=== PATIENT | male | born 1955 | race Caucasian/White ===

== ENCOUNTER → 2019-03-10 | Outpatient (CLI) | payer OTHER ==
--- NOTE | 2019-03-10 09:58 | KCIC ---
EXAM: Abdominal aortic sonogram. HISTORY: Aneurysm screening. TECHNIQUE: Sonographic imaging of the abdominal aorta was performed. COMPARISON: None. FINDINGS: The proximal abdominal aorta measures 2.9 cm in caliber. The mid abdominal aorta measures 2.1 cm in caliber. The distal abdominal aorta measures 1.3 cm in caliber. The common iliac arteries measure 0.5 cm of the right and 0.6 cm of the left. There is atherosclerotic plaque throughout the aorta and iliac bifurcation. IMPRESSION: No sonographic evidence of an abdominal aortic aneurysm. Aortobiiliac atherosclerosis. Electronically signed by: Sofia Donnelly MD (03/10/2019 9:55 AM) [place] [id number]
--- NOTE | 2019-03-10 14:00 | KCIC ---
MRI of the lumbar spine without contrast 03/10/2019 CLINICAL HISTORY: History of compression fractures with recent fall. Worsening low back pain. TECHNIQUE: Unenhanced T1-weighted and T2-weighted sagittal and axial and inversion recovery sagittal images of the lumbar spine were obtained. FINDINGS: Comparison is made to radiographs of the lumbar spine dated 09/11/2010. Very mild S-shaped curvature of the thoracolumbar spine is seen. Degenerative signal changes are seen involving all of the disks of the lumbar spine. Degenerative signal changes are seen within the marrow surrounding these discs. An old compression fracture of the superior endplate of the L3 vertebral body is seen. This vertebral body has lost 50 percent of its normal height. No retropulsion of bone fragments into the central spinal canal is seen. Schmorl's node formation is seen involving the superior endplate of the T12 vertebral body, the inferior endplate of the L1 vertebral body and the superior endplate of the L3 vertebral body and to lesser extent the superior endplate of the L4-5 vertebral body. An acute compression fracture is seen involving the L4 vertebral body. This vertebral body has lost approximately 40 percent of its normal height. No retropulsion of bone fragments into the central spinal canal is seen. The conus medullaris is normal in morphology, position, and signal characteristics. The changes of degenerative disc disease are seen throughout the lumbar disc spaces. These consist of mild to moderate generalized disc bulges, degenerative changes involving the facet joints and mild to moderate ligamentum flavum hypertrophy. These findings do not result in significant central spinal canal stenosis at any level. Mild bilateral neural foraminal stenosis is seen at L3-4, L4-5 and L5-S1. IMPRESSION: An acute compression fracture seen involving the L4 vertebral body. No retropulsion of bone fragments into the central spinal canal is seen. Electronically signed by: Jona Frederick MD (03/10/2019 1:57 PM) [facility]
== END | disposition home or self-care (01) ==
LOC: KCIC US 08:21
PROVIDERS: ATTEND Family Medicine
DX: Z13.6 Encounter for screening for cardiovascular disorders (principal); M80.08XA Age-related osteoporosis with current pathological fracture, vertebra(e), initial encounter for fracture; I70.0 Atherosclerosis of aorta; M51.36 Other intervertebral disc degeneration, lumbar region; M48.07 Spinal stenosis, lumbosacral region; F17.219 Nicotine dependence, cigarettes, with unspecified nicotine-induced disorders; Z87.81 Personal history of (healed) traumatic fracture
CPT/HCPCS: 72148; 76770

== ENCOUNTER 2019-09-24 12:42 | Inpatient (IN) | payer OTHER ==
[~2019-09-24] VITALS: Ht 177.8 cm; Wt 53.5 kg
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
[2019-09-24 16:12] VITALS: BP 186/84
[2019-09-24] MEDS ORDERED: KETOROLAC 15 MG/ML VIAL. IVP PRN (16:15)
[2019-09-24] MEDS ORDERED: ONDANSETRON PF 4 MG/2 ML VIAL. IVP PRN (16:15)
[2019-09-24] MEDS: POTASSIUM CL 20MEQ D5-0.45NACL 1,000 ML IV SCH (16:44)
[2019-09-24 17:09] LABS: BASO % 0 % (0-3); EOS # 0.1 x10^3/uL (0.0-0.7); EOS % 1 % (0-3); HEMATOCRIT 34.3 % (39.0-53.0); HEMOGLOBIN 11.9 g/dL (13.0-17.5); LYMPH # 1.1 x10^3/uL (1.0-4.8); LYMPH % 6 % (24-48); MEAN CORPUSCULAR HEMOGLOBIN 34 pg (25-35); MEAN CORPUSCULAR HGB CONC 35 g/dL (31-37); MEAN CORPUSCULAR VOLUME 98 fL (79-100); MONO # 0.8 x10^3/uL (0.0-1.1); MONO % 5 % (0-9); NEUT # 15.6 x10^3/uL (1.8-7.7); NEUT % 89 % (31-73); PLATELET COUNT 361 x10^3/uL (140-400); RED CELL DISTRIBUTION WIDTH 14.1 % (11.5-14.5); WHITE BLOOD COUNT 17.6 x10^3/uL (4.0-11.0)
[2019-09-24 17:21] LABS: CALCIUM 8.8 mg/dL (8.5-10.1); CREATININE 1.7 mg/dL (0.7-1.3); GFR 40.7; POTASSIUM 4.4 mmol/L (3.5-5.1)
[2019-09-24 17:26] LABS: ALBUMIN 2.4 g/dL (3.4-5.0); ALBUMIN/GLOBULIN RATIO 0.6 (1.0-1.7); TOTAL BILIRUBIN 0.3 mg/dL (0.2-1.0); TOTAL PROTEIN 6.4 g/dL (6.4-8.2)
[2019-09-24 17:45] LABS: % BANDS 1 % (0-9); % LYMPHS 4 % (24-48); % MONOS 5 % (0-10); % SEGS 90 % (35-66)
[2019-09-24 17:46] LABS: PLT ESTIMATE ADEQUATE (ADEQUATE)
[2019-09-24] MEDS ORDERED: fentaNYL PF VIAL 100 MCG/2 ML VIAL IVP PRN (18:30)
[2019-09-24 19:00] VITALS: BP 123/43
[2019-09-24 19:42] LABS: BILIRUBIN,URINE NEGATIVE (NEG); CLARITY,URINE CLEAR; COLOR,URINE YELLOW; NITRITE,URINE NEGATIVE (NEG); PH,URINE 6.5; PROTEIN,URINE NEGATIVE (NEG-TRACE); UROBILINOGEN,URINE 0.2 mg/dL (0.2 mg/dL)
[2019-09-24 19:52] LABS: BACTERIA,URINE 0 /HPF (0-FEW); SQUAMOUS EPITHELIAL CELL,UR FEW /LPF
[2019-09-24] MEDS: LACTOBACILLUS RHAMNOSUS GG 1 CAPSULE. PO SCH (20:52)
[2019-09-24] MEDS: CIPROFLOXACIN 400MG PREMIX 200 ML IV SCH (20:52)
[2019-09-24 22:17] VITALS: BP 130/68
[2019-09-25] MEDS: POTASSIUM CL 20MEQ D5-0.45NACL 1,000 ML IV SCH ×3 (01:28→18:15)
[2019-09-25 03:00] VITALS: BP 151/70
--- NOTE | 2019-09-25 03:07 | RAD ---
CHEST PA LATERAL CLINICAL INDICATION: Lower extremity weakness. History of COPD. COMPARISON: None FINDINGS: Heart is normal in size. Interstitial opacities bilaterally without focal ulceration. Lungs are hyperinflated. No pneumothorax or pleural effusion. Visualized bony thorax within normal limits. IMPRESSION: COPD changes with superimposed atypical/viral infection not ruled out. Electronically signed by: Pilo Marc DO (09/25/2019 3:05 AM) [facility]
[2019-09-25 07:00] VITALS: BP 182/71
--- NOTE | 2019-09-25 08:32 | PDOC ---
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 LALY SANCHEZ MD Sep 25, 2019 08:31
[2019-09-25] MEDS: CIPROFLOXACIN 400MG PREMIX 200 ML IV SCH ×2 (09:01→21:02)
[2019-09-25] MEDS: NICOTINE 14MG PATCH. TD SCH (09:02)
[2019-09-25] MEDS: LACTOBACILLUS RHAMNOSUS GG 1 CAPSULE. PO SCH ×2 (09:02→21:02)
[2019-09-25] MEDS: CHOLECALCIFEROL (VITAMIN D3) 1,000 UNIT TABLET PO SCH (09:02)
[2019-09-25 11:00] VITALS: BP 156/119
[2019-09-25] MEDS: HYDROcodone/APAP 5/325MG 1 TAB TABLET PO PRN ×2 (11:00→18:15)
--- NOTE | 2019-09-25 12:35 | NUR ---
SW following for discharge planning. Discussed with RN, pt is from home alone, MRI today. PT/OT to see pt. SW will continue to follow for any discharge planning needs.
--- NOTE | 2019-09-25 14:44 | NUR ---
Rehab screen completed. Pt reports decline in mobility and ADL's due to increased pain in bilateral LE's and feet and would benefit from PT/OT eval and treat. Please order if you agree. Addendum: 09/25/19 at 1446 by STEFFANY BROWN PT Amended: Links added.
[2019-09-25 15:00] VITALS: BP 141/63
[2019-09-25 19:00] VITALS: BP 152/69
[2019-09-25 23:00] VITALS: BP 134/78
[2019-09-26 03:00] VITALS: BP 144/56
[2019-09-26] MEDS: HYDROcodone/APAP 5/325MG 1 TAB TABLET PO PRN ×2 (04:16→11:52)
[2019-09-26 04:50] LABS: CALCIUM 8.6 mg/dL (8.5-10.1); CREATININE 1.4 mg/dL (0.7-1.3); GFR 50.9; POTASSIUM 4.5 mmol/L (3.5-5.1)
[2019-09-26 07:59] VITALS: BP 142/57
[2019-09-26] MEDS: POTASSIUM CL 20MEQ D5-0.45NACL 1,000 ML IV SCH (08:25)
[2019-09-26] MEDS: CIPROFLOXACIN 400MG PREMIX 200 ML IV SCH (08:26)
[2019-09-26] MEDS: LACTOBACILLUS RHAMNOSUS GG 1 CAPSULE. PO SCH ×2 (08:26→21:41)
[2019-09-26] MEDS: CHOLECALCIFEROL (VITAMIN D3) 1,000 UNIT TABLET PO SCH (08:26)
[2019-09-26] MEDS: NICOTINE 14MG PATCH. TD SCH (08:26)
--- NOTE | 2019-09-26 10:34 | PDOC ---
Provider Note Provider Note vss, no more temp, feels better, no more temp- still has pain down both legs , worse when standing, as well as low back pain- psa now 2 from 16, - MRI wa sordered on admit 09/24, as my concern is diff dx of disciitis, tumor, epidural abscess among others- THE DELAY IN THIS PROCEDURE PLACES THE PATIENT AT GREATER RISK OF POOR OUTCOME BY DELAYING THE CLEARLY INDICATED TEST- I informed the patient of this delay, and that he cannot have this done as outpatient as that would lead to even greater time delay in knowing what next may need to be done- he understands my concerns and the need for continued hosp care- renal better so will reduce iv fluid and follow, cont cipro as po now- blood cults neg so far LALY SANCHEZ MD Sep 26, 2019 10:34
[2019-09-26 11:59] VITALS: BP 156/55
[2019-09-26 15:59] VITALS: BP 142/72
[2019-09-26 19:00] VITALS: BP 150/65
[2019-09-26] MEDS: IPRATRPIUM/ALBUTEROL 0.5/2.5MG 3 ML NEBU. NEB SCH (20:18)
[2019-09-26] MEDS: CIPROFLOXACIN HCL 250 MG TABLET. PO SCH (21:41)
[2019-09-26 23:00] VITALS: BP 99/41
[2019-09-27 03:00] VITALS: BP 101/42
[2019-09-27] MEDS: IPRATRPIUM/ALBUTEROL 0.5/2.5MG 3 ML NEBU. NEB SCH ×4 (07:33→19:56)
[2019-09-27 07:59] VITALS: BP 110/53
[2019-09-27] MEDS: LACTOBACILLUS RHAMNOSUS GG 1 CAPSULE. PO SCH ×2 (08:32→20:55)
[2019-09-27] MEDS: CHOLECALCIFEROL (VITAMIN D3) 1,000 UNIT TABLET PO SCH (08:32)
[2019-09-27] MEDS: CIPROFLOXACIN HCL 250 MG TABLET. PO SCH ×2 (08:32→20:56)
[2019-09-27] MEDS: NICOTINE 14MG PATCH. TD SCH (08:33)
[2019-09-27] MEDS ORDERED: VANCOMYCIN 1GM IVPB FOR OMNI 250 ML IV ONE (09:15)
[2019-09-27] MEDS ORDERED: VANCOMYCIN 1 GM in IV NORMAL SALINE 250ML 250 ML IV ONE (10:00)
--- NOTE | 2019-09-27 11:33 | RAD ---
EXAM: Thoracolumbar spine, 2 views. HISTORY: Claudication. COMPARISON: None. FINDINGS: 2 views of the thoracolumbar spine are obtained. There are suspected mild T7, moderate T9 and mild T10 compression fractures there are also mild L3 and L5 and moderate L4 compression fractures, the latter of which is associated with slight retropulsion of the cortex. There is mild thoracolumbar scoliosis. There is facet arthropathy at the lower lumbar levels. There is hyperinflation of the lungs due to inspiratory effort or emphysema. There are suspected trace pleural effusions or basilar pleural thickening. IMPRESSION: 1. Multiple thoracic and lumbar compression fractures, described above. These are of uncertain chronicity. Correlate for pain in these locations. 2. Degenerative change primarily at the lower lumbar levels. Electronically signed by: Sofia Donnelly MD (09/27/2019 11:30 AM) [facility]
[2019-09-27 11:59] VITALS: BP 123/46
--- NOTE | 2019-09-27 13:02 | PDOC ---
Infectious Disease Note Vital Sign Vital Signs Vital Signs Date Time Temp Pulse Resp B/P (MAP) Pulse Ox O2 Delivery O2 Flow Rate FiO2 09/27/19 11:59 98.1 103 20 123/46 (71) 94 Nasal Cannula 2.0 98.1 Labs Micro Microbiology 09/24/19 Urine Culture - Final, Complete 09/24/19 Urine Culture Result 1 (KUNAL) - Final, Complete 09/24/19 Blood Culture - Preliminary, Resulted NO GROWTH AFTER 2 DAYS Objective Assessment Fever s/p dose vanc, 09/27 Leukocytosis, (down from 28,000 outpatient) UTI. Failed OP Bactrim. over-all symptoms improved with cipro but still having urinary urgency Back pain with bilateral lower extremity pain and weakness h/o lumbar compression fractures RADHA Tobacco dependency Plan Plan of Care check a procalcitoin level Pelvic and renal US Copy of labs/urine culture from PCP office requested Needs MRI r/o diskitis Consult neurology Continue cipro for now Vanc x 1 dose, 09/27 per primary Above rec per Dr. Bonilla Thank you [id number] Patient seen and examined. Chart reviewed in detail. 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 Agree with above plan LIEN LOPEZ APRN Sep 27, 2019 13:02 ARLINE BONILLA MD Sep 27, 2019 19:06
--- NOTE | 2019-09-27 13:26 | PDOC ---
Provider Note Provider Note more low grade temp, leg sxs same- BC neg so far- note mult fractures of spine, ? age , raises ? of myeloma, so will get light chains/ SPE/ skeletal survey- still await approval of SERIOUSLY NEEDED MRI s. pt is aware of reason for delay- will add vanco pending further BC but e coli in urine responding to LALY Martinez MD Sep 27, 2019 13:26
[2019-09-27 13:39] LABS: BASO # 0.1 x10^3/uL (0.0-0.2); BASO % 1 % (0-3); EOS # 0.1 x10^3/uL (0.0-0.7); EOS % 1 % (0-3); HEMATOCRIT 31.7 % (39.0-53.0); HEMOGLOBIN 10.6 g/dL (13.0-17.5); LYMPH # 1.1 x10^3/uL (1.0-4.8); LYMPH % 7 % (24-48); MEAN CORPUSCULAR HEMOGLOBIN 33 pg (25-35); MEAN CORPUSCULAR HGB CONC 33 g/dL (31-37); MEAN CORPUSCULAR VOLUME 99 fL (79-100); MONO % 6 % (0-9); NEUT # 13.1 x10^3/uL (1.8-7.7); NEUT % 85 % (31-73); PLATELET COUNT 411 x10^3/uL (140-400); RED BLOOD COUNT 3.22 x10^6/uL (4.30-5.70); RED CELL DISTRIBUTION WIDTH 13.6 % (11.5-14.5); WHITE BLOOD COUNT 15.3 x10^3/uL (4.0-11.0)
[2019-09-27] MEDS: VANCOMYCIN PER PHARMACY MC PRN ×2 (13:48→14:09)
[2019-09-27 15:00] VITALS: BP 117/60
--- NOTE | 2019-09-27 15:20 | NUR ---
Pharmacy Vancomycin Dosing Note S:Consulted to monitor and dose vancomycin started 09/27/19. O:ANIVAL CROWE is a 64 year old M with UTI . Height: 5 feet, 10 inches Weight: 53.162747 kg [place] Body Weight: Adjusted Body Weight: Dosing Weight: Actual Other Antibiotics: CIPRO PO LABS: Last BUN: Last Creatinine: 1.4 Creatinine Clearance: 40 mL/min Last WBC: 15.3 Last Procalcitonin: Tmax (past 24 hours): 100.4 Microbiology: URINE NG1D I/O: 1060/4000 Drug Levels: Last level: on at Last dose given 09/27/19 at 1100 Vancomycin Dosing: Loading Dose: 1000 mg x1 Dosing Weight: Actual Target Trough: 10-20 A: Based on: WEIGHT AND RENAL FUNCTION, 1GM IV BOLUS THIS MORNING; P: 1. START Vancomycin 1000 mg IV q24HR TOMORROW 2. Follow up Trough level on 09/29/19 at 1030 3. Pharmacy will continue to monitor, follow and adjust therapy as needed. ANTHONY MENDOZA [facility], 09/27/19 [id number]
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
[2019-09-27 19:00] VITALS: BP 127/57
[2019-09-27] MEDS ORDERED: VANCOMYCIN 1 GM in IV NORMAL SALINE 250ML 250 ML IV SCH (20:30)
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
[2019-09-27 23:00] VITALS: BP 125/59
[2019-09-28 03:02] VITALS: BP 104/54
[2019-09-28 07:00] VITALS: BP 131/62
[2019-09-28] MEDS: IPRATRPIUM/ALBUTEROL 0.5/2.5MG 3 ML NEBU. NEB SCH ×4 (07:25→19:43)
[2019-09-28] MEDS: NICOTINE 14MG PATCH. TD SCH (08:18)
[2019-09-28] MEDS: HYDROcodone/APAP 5/325MG 1 TAB TABLET PO PRN (08:18)
[2019-09-28] MEDS: CHOLECALCIFEROL (VITAMIN D3) 1,000 UNIT TABLET PO SCH (08:19)
[2019-09-28] MEDS: LACTOBACILLUS RHAMNOSUS GG 1 CAPSULE. PO SCH ×2 (08:19→20:37)
[2019-09-28] MEDS: CIPROFLOXACIN HCL 250 MG TABLET. PO SCH (08:19)
--- NOTE | 2019-09-28 08:19 | RAD ---
RENAL COMPLETE BILATERAL History: Acute kidney injury, urinary urgency, UTI, fever Comparison: None. Findings: Multiple sonographic images of the kidneys and retroperitoneal structures are submitted. Right kidney measured 12.1 x 5.5 x 5.9 cm, no hydronephrosis. There is a partially hypoechoic lesion with somewhat coarse internal echoes of the mid to inferior right kidney about 2.4 x 1.7 x 1.9 cm. This is not associated with significant internal vascularity on color Doppler imaging. Left kidney measured 11.4 x 5.9 x 5.1 cm, no hydronephrosis. Visualized abdominal aortic caliber is within normal limits up to 2 cm, mid segment obscured by bowel gas. There is segmental visualization of the inferior vena cava. Urinary bladder is not well visualized as patient recently voided. Impression: 1. Not associated with significant internal vascularity, there is a partially hypoechoic lesion of the mid to inferior right kidney which may be a complicated cyst or acute focal pyelonephritis. However given internal echoes, follow-up to assess stability such as in 6 months or pre and postcontrast CT imaging is recommended. Electronically signed by: Yuri Nuno MD (09/28/2019 8:15 AM) [facility]
--- NOTE | 2019-09-28 08:43 | PDOC ---
Provider Note Provider Note feels same, pain ok at rest, worse standing- bc all neg, myeloma tests pending- mri is to be done today as approved- LALY SANHCEZ MD Sep 28, 2019 08:43
[2019-09-28] MEDS ORDERED: GADOTERATE 7.5 MMOL/15ML VIAL. IVP ONE (10:45)
[2019-09-28 11:00] VITALS: BP 134/60
[2019-09-28] MEDS ORDERED: VANCOMYCIN 1 GM in IV NORMAL SALINE 250ML 250 ML IV SCH (11:00)
--- NOTE | 2019-09-28 11:58 | NUR ---
SW following for discharge planning. Chart reviewed, discussed with RN. Pt is from home alone, having an MRI today. PT/OT eval recommended by therapy. SW will continue to follow for any discharge planning needs.
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
--- NOTE | 2019-09-28 12:24 | PDOC ---
Infectious Disease Note Subjective Subjective Doing ok. Back pain is ok Just had MRI No F/C/S/N/V/d/SOA/rash or urinary symptoms ROS ROS o/w neg Vital Sign Vital Signs Vital Signs Date Time Temp Pulse Resp B/P (MAP) Pulse Ox O2 Delivery O2 Flow Rate FiO2 09/28/19 11:27 90 Nasal Cannula 2.0 09/28/19 07:00 97.9 103 17 131/62 (85) 97.9 Physical Exam PHYSICAL EXAM GENERAL: The patient is sitting upright in bed, alert, eating. NAD HEENT: Pupils equally round. Oropharynx red. No exudates. NECK: Supple. LUNGS: Clear to auscultation. HEART: S1, S2. ABDOMEN: Soft and nontender. Bowel sounds present. EXTREMITIES: No gross edema or cyanosis. SKIN: Warm to touch. No signs of rash. NEUROLOGIC: Alert and oriented x 3. Moves all extremities.coop Labs Lab Laboratory Tests Test 09/28/19 02:50 Procalcitonin 0.24 ng/mL (0.00-0.10) Micro Microbiology 09/27/19 Blood Culture - Preliminary, Resulted NO GROWTH AFTER 1 DAY 09/24/19 Urine Culture - Final, Complete 09/24/19 Urine Culture Result 1 (KUNAL) - Final, Complete Objective Assessment 1. Fever - better 2. Leukocytosis, improved from 28,000 outpatient. 3. Recent urinary tract infection, reportedly with Escherichia coli resistant to Bactrim. -U/S - no acute ?cyst 4. Back pain with bilateral lower extremity pain and weakness. 5. History of lumbar compression fractures. 6. Acute kidney injury. 7. Tobacco dependency. Plan Plan of Care Labs in am Copy of labs/urine culture from PCP office requested F/u MRI Continue cipro/Vanc SYLWIA MEHTA MD Sep 28, 2019 12:24
[2019-09-28 15:05] VITALS: BP 110/57
[2019-09-28] MEDS: VANCOMYCIN PER PHARMACY MC PRN (15:07)
--- NOTE | 2019-09-28 15:43 | NUR ---
I have read the documentation by SN Agustin and concur unless otherwise stated. Joaquín Castillo, MSN, ALLA, RN [facility]
--- NOTE | 2019-09-28 16:48 | RAD ---
THORACIC SPINE WO CONTRAST, LUMBAR SPINE WO/W CONTRAST History: Compression fractures. Pain. Fever. Sepsis. Technique: Multiplanar, multi sequential MR imaging was performed of the thoracic spine without contrast. Multiplanar multisequence MRI was performed of the lumbar spine with and without contrast. Comparison: MRI March 10, 2019. Findings: Thoracic spine MRI: Motion degraded examination. Chronic mild T6, T8, T10 and T11 compression fractures. Chronic moderate T7 and T9 compression fractures. T12 superior endplate Schmorl's node. Normal alignment. No retropulsion. Evaluation of the thoracic spinal cord is degraded due to patient motion. No definite signal abnormality. Mild multilevel degenerative disc disease with disc space narrowing. T11-T12 small posterior disc protrusion. No significant canal narrowing. No neuroforaminal narrowing. Tiny bilateral pleural effusions. MRI lumbar spine: Motion degraded examination. Acute on chronic L4 compression fracture with increased bone marrow edema and increased height loss compared to prior. No retropulsion. Chronic L3 and L5 compression fractures. Inferior endplate L1 Schmorl's node. Normal alignment. No retropulsion. Conus terminates at the normal location. No evidence of nerve root clumping. No enhancement. Right renal cysts. L1-L2: Small posterior disc bulge. No canal or neuroforaminal narrowing. Mild facet arthropathy. L2-L3: Small posterior disc bulge. Mild facet arthropathy. No canal or neuroforaminal narrowing. L3-L4: Broad-based posterior disc bulge. Moderate facet arthropathy. Mild canal narrowing. Superimposed right foraminal disc protrusion. Moderate right neuroforaminal narrowing. Mild left neuroforaminal narrowing. L4-L5: Small posterior disc bulge. Moderate facet arthropathy. Bilateral facet joint effusion. Mild bilateral subarticular recess narrowing. No canal narrowing. Moderate right and mild to moderate left neuroforaminal narrowing. L5-S1: Broad-based posterior disc bulge with central annular fissure. Moderate facet arthropathy. No canal narrowing. Moderate bilateral neural foraminal narrowing. Impression: 1. Motion degraded evaluation. 2. Acute on chronic L4 compression fracture, increased height loss compared to prior. 3. Additional multilevel chronic thoracolumbar compression fractures. 4. Multilevel lumbar spondylosis most prominent L3-L4 and L5-S1. 5. Multilevel neural foraminal narrowing most prominent right L3-L4, right L4-L5 and bilateral L5-S1. 6. Tiny bilateral pleural effusions. Electronically signed by: Jag Brumfield DO (09/28/2019 4:45 PM) [facility]
[2019-09-28 19:00] VITALS: BP 120/58
[2019-09-28] MEDS ORDERED: FLUCONAZOLE 100 MG TABLET. PO ONE (21:00)
[2019-09-28 23:00] VITALS: BP 116/54
[2019-09-29 02:32] VITALS: BP 128/57
[2019-09-29 03:52] LABS: BASO # 0.1 x10^3/uL (0.0-0.2); BASO % 1 % (0-3); EOS # 0.5 x10^3/uL (0.0-0.7); EOS % 3 % (0-3); HEMATOCRIT 28.4 % (39.0-53.0); HEMOGLOBIN 9.6 g/dL (13.0-17.5); LYMPH # 1.5 x10^3/uL (1.0-4.8); LYMPH % 9 % (24-48); MEAN CORPUSCULAR HEMOGLOBIN 34 pg (25-35); MEAN CORPUSCULAR HGB CONC 34 g/dL (31-37); MEAN CORPUSCULAR VOLUME 99 fL (79-100); MONO # 1.2 x10^3/uL (0.0-1.1); MONO % 7 % (0-9); NEUT # 12.8 x10^3/uL (1.8-7.7); NEUT % 80 % (31-73); PLATELET COUNT 459 x10^3/uL (140-400); RED BLOOD COUNT 2.87 x10^6/uL (4.30-5.70); RED CELL DISTRIBUTION WIDTH 13.7 % (11.5-14.5)
[2019-09-29 04:03] LABS: CALCIUM 8.7 mg/dL (8.5-10.1); CREATININE 1.4 mg/dL (0.7-1.3); GFR 50.9; POTASSIUM 4.8 mmol/L (3.5-5.1)
[2019-09-29 06:32] VITALS: BP 136/64
[2019-09-29] MEDS: IPRATRPIUM/ALBUTEROL 0.5/2.5MG 3 ML NEBU. NEB SCH ×4 (07:47→19:46)
--- NOTE | 2019-09-29 07:57 | PDOC ---
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
--- NOTE | 2019-09-29 09:02 | PDOC ---
Infectious Disease Note Subjective Subjective Doing ok. Back pain is ok No F/C/S/N/V/d/SOA/rash or urinary symptoms ROS ROS o/w neg Vital Sign Vital Signs Vital Signs Date Time Temp Pulse Resp B/P (MAP) Pulse Ox O2 Delivery O2 Flow Rate FiO2 09/29/19 07:49 93 Room Air 09/29/19 06:32 98.8 89 17 136/64 (88) 98.8 09/28/19 11:27 2.0 Physical Exam PHYSICAL EXAM GENERAL: The patient is sitting upright in bed, alert NAD HEENT: Pupils equally round. Oropharynx red. No exudates. NECK: Supple. LUNGS: Clear to auscultation. HEART: S1, S2. ABDOMEN: Soft and nontender. Bowel sounds present. EXTREMITIES: No gross edema or cyanosis. SKIN: Warm to touch. No signs of rash. NEUROLOGIC: Alert and oriented x 3. Moves all extremities.coop Labs Lab Laboratory Tests Test 09/29/19 03:05 09/29/19 04:30 White Blood Count 16.0 x10^3/uL (4.0-11.0) Red Blood Count 2.87 x10^6/uL (4.30-5.70) Hemoglobin 9.6 g/dL (13.0-17.5) Hematocrit 28.4 % (39.0-53.0) Mean Corpuscular Volume 99 fL (79-100) Mean Corpuscular Hemoglobin 34 pg (25-35) Mean Corpuscular Hemoglobin Concent 34 g/dL (31-37) Red Cell Distribution Width 13.7 % (11.5-14.5) Platelet Count 459 x10^3/uL (140-400) Neutrophils (%) (Auto) 80 % (31-73) Lymphocytes (%) (Auto) 9 % (24-48) Monocytes (%) (Auto) 7 % (0-9) Eosinophils (%) (Auto) 3 % (0-3) Basophils (%) (Auto) 1 % (0-3) Neutrophils # (Auto) 12.8 x10^3/uL (1.8-7.7) Lymphocytes # (Auto) 1.5 x10^3/uL (1.0-4.8) Monocytes # (Auto) 1.2 x10^3/uL (0.0-1.1) Eosinophils # (Auto) 0.5 x10^3/uL (0.0-0.7) Basophils # (Auto) 0.1 x10^3/uL (0.0-0.2) Sodium Level 140 mmol/L (136-145) Potassium Level 4.8 mmol/L (3.5-5.1) Chloride Level 103 mmol/L (98-107) Carbon Dioxide Level 31 mmol/L (21-32) Anion Gap 6 (6-14) Blood Urea Nitrogen 35 mg/dL (8-26) Creatinine 1.4 mg/dL (0.7-1.3) Estimated GFR (Cockcroft-Gault) 50.9 Glucose Level 109 mg/dL (70-99) Calcium Level 8.7 mg/dL (8.5-10.1) Iron Level 19 ug/dL (65-175) Total Iron Binding Capacity 180 ug/dL (250-450) Iron Saturation 11 % (15-34) Micro MRI Impression: 1. Motion degraded evaluation. 2. Acute on chronic L4 compression fracture, increased height loss compared to prior. 3. Additional multilevel chronic thoracolumbar compression fractures. 4. Multilevel lumbar spondylosis most prominent L3-L4 and L5-S1. 5. Multilevel neural foraminal narrowing most prominent right L3-L4, right L4-L5 and bilateral L5-S1. 6. Tiny bilateral pleural effusions. Microbiology 09/27/19 Blood Culture - Preliminary, Resulted NO GROWTH AFTER 1 DAY 09/24/19 Urine Culture - Final, Complete 09/24/19 Urine Culture Result 1 (KUNAL) - Final, Complete Objective Assessment 1. Fever - better 2. Leukocytosis - ? inpart to vertebral fractures, improved from 28,000 outpatient. 3. Recent urinary tract infection, reportedly with Escherichia coli resistant to Bactrim.- sens to Cipro per Dr. Jamil -U/S - no acute ?cyst 4. Back pain with bilateral lower extremity pain and weakness. 5. History of lumbar compression fractures multiple compression fractures on MRI. 6. Acute kidney injury - better. 7. Tobacco dependency. Plan Plan of Care D/w Dr. Jamil. Urine cult here neg but he said was + for Ecoli sen to Cipro. Additionally he reports his PSA was 16 to 18 outpatient and now has improved to 1.99. This suggests prostatitis. Would continue cipro for 3 more weeks to complete therapy for prostatitis With MRI neg for infection will d/c Vanc Heme/onc to eval D/w Dr. Jamil and I will sign off SYLWIA MEHTA MD Sep 29, 2019 09:02
[2019-09-29] MEDS: NICOTINE 14MG PATCH. TD SCH (09:27)
[2019-09-29] MEDS: FLUCONAZOLE 100 MG TABLET. PO SCH (09:28)
[2019-09-29] MEDS: LACTOBACILLUS RHAMNOSUS GG 1 CAPSULE. PO SCH ×2 (09:28→21:04)
[2019-09-29] MEDS: CHOLECALCIFEROL (VITAMIN D3) 1,000 UNIT TABLET PO SCH (09:28)
[2019-09-29] MEDS: CIPROFLOXACIN HCL 250 MG TABLET. PO SCH ×2 (09:28→21:04)
--- NOTE | 2019-09-29 09:56 | PDOC2 ---
CONSULT Date of Consult Date of Consult DATE: 09/29/19 TIME: 09:51 Reason for consultation: Possible myeloma? Consult: Hematology oncology, Dr. 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 He does have vertebral compression fractures. Past medical history: Peripheral neuropathy Celiac disease Tobacco abuse Impression fractures COPD and UTI Past surgical history: None reported Allergies: No known drug allergies Medications: See attached list Social history: , tells me he quit tobacco at this admit, 2 kids rela tively healthy Family history: His father of stomach cancer at 47 Review of systems: Back pain, weight loss of about 6 pounds, numbness and tingling in his legs extending to his hands, headaches, weakness, cough with dyspnea related to COPD, otherwise 10 pt review of systems negative Physical exam: Vitals reviewed, MAXIMUM TEMPERATURE 100.4 on 09/27 Gen.: thin 60s man in no acute distress, resting in bed HEENT: mucous membranes moist, head normocephalic atraumatic Neck: Supple, no lymphadenopathy Lymph nodes: No palpable lymphadenopathy neck or axilla Lungs: Breathing comfortably w/o respiratory distress Abdomen: Soft, nontender, nondistended Extremities: No cyanosis or signif edema Skin: No obvious rashes or skin breakdown Neuro: Alert and oriented 3 Psych: pleasant mood and affect Lab reviewed: White count 16, hemoglobin 9.6, platelets were 59 MCV 99 ESR 91 Cr 1.4 Calcium 8.7 PSA 1.99 procalc 0.24 Blood cultures and urine cultures negative recently Rads reviewed: Evidence of compression fractures, COPD, and tiny bilateral effusions Case discussed with: Pt, records reviewed [facility], including labs and radiology, please see note for summary details. Assessment and Plan: He is a 64-year-old man who is admitted with back pain and associated weakness and numbness and tingling, being treated for UTI, there was a concern for myeloma. UTI: On antibiotics Vertebral compression fractures with back pain: Per primary Concern for myeloma: Skeletal survey and SPEP and kappa lambda chains have been ordered, will order UPEP with quantitative immunoglobulins and follow-up as soon as those lab values are available Acute kidney injury: Per primary Thank you kindly for this consultation, and please don't hesitate to call with any further questions. Current Medications Current Medications Current Medications Potassium Chloride/Dextrose/ Sod Cl 1,000 ml @ 50 mls/hr Q20H IV Last administered on 09/26/19 08:25; Start 09/24/19 at 17:00; Stop 09/26/19 at 19:45; Status DC Ciprofloxacin/ Dextrose 200 ml @ 200 mls/hr Q12HR IV Last administered on 09/26/19 08:26; Start 09/24/19 at 21:00; Stop 09/26/19 at 11:01; Status DC Ondansetron HCl (Zofran) 4 mg PRN Q6HRS PRN IVP NAUSEA/VOMITING Last administered on 09/26/19at 20:08; Start 09/24/19 at 16:15 Ketorolac Tromethamine (Toradol 15mg Vial) 15 mg PRN Q6HRS PRN IVP MODERATE PAIN Last administered on 09/24/19at 16:43; Start 09/24/19 at 16:15; Stop at 16:14 Lactobacillus Rhamnosus (Culturelle) 1 cap BID PO Last administered on 09/29/19 09:28; Start 09/24/19 at 21:00 Fentanyl Citrate (Fentanyl 2ml Vial) 50 mcg PRN Q2HR PRN IVP SEVERE PAIN; Start 09/24/19 at 18:30; Stop 09/29/19 at 07:54; Status DC Acetaminophen/ Hydrocodone Bitart (Lortab 5/325) 1 tab PRN Q4HRS PRN PO PAIN Last administered on 09/28/19 08:18; Start 09/25/19 at 08:15 Nicotine (Nicoderm Cq 14mg) 1 patch DAILY TD Last administered on 09/29/19 09:27; Start 09/25/19 at 09:00 Vitamin D (Vitamin D3) 2,000 unit DAILY PO Last administered on 09/29/19 09:28; Start 09/25/19 at 09:00 Ciprofloxacin (Cipro) 500 mg BID PO Last administered on 09/28/19 08:19; Start 09/26/19 at 21:00; Stop 09/28/19 at 17:52; Status DC Albuterol/ Ipratropium (Duoneb) 3 ml RTQID NEB Last administered on 09/29/19at 07:47; Start 09/26/19 at 20:00 Vancomycin HCl 250 ml @ 250 mls/hr 1X ONCE IV ; Start 09/27/19 at 09:15; Stop 09/27/19 at 10:14; Status UNV Vancomycin HCl 1 gm/Sodium Chloride 250 ml @ 250 mls/hr 1X ONCE IV Last administered on 09/27/19at 10:40; Start 09/27/19 at 10:00; Stop 09/27/19 at 10:59; Status DC Vancomycin HCl 1 gm/Sodium Chloride 250 ml @ 250 mls/hr Q12H IV ; Start 09/27/19 at 20:30; Status UNV Vancomycin HCl (Vanco Per Pharmacy) 1 each PRN DAILY PRN MC SEE COMMENTS Last administered on 09/28/19at 15:07; Start 09/27/19 at 13:45; Stop 09/29/19 at 07:56; Status DC Vancomycin HCl 1 gm/Sodium Chloride 250 ml @ 250 mls/hr Q24H IV Last administered on 09/28/19at 12:32; Start 09/28/19 at 11:00; Stop 09/29/19 at 07:54; Status DC Vancomycin HCl (Vancomycin Trough Level) 1 each 1X ONCE MC ; Start 09/29/19 at 10:30; Stop 09/29/19 at 07:56; Status DC Gadoterate Meglumine (Dotarem) 10.8 ml 1X ONCE IVP Last administered on 09/28/19at 10:55; Start 09/28/19 at 10:45; Stop 09/28/19 at 10:46; Status DC Fluconazole (Diflucan) 200 mg 1X ONCE PO Last administered on 09/28/19at 20:37; Start 09/28/19 at 21:00; Stop 09/28/19 at 21:01; Status DC Fluconazole (Diflucan) 100 mg DAILY PO Last administered on 09/29/19at 09:28; Start 09/29/19 at 09:00 Ciprofloxacin (Cipro) 500 mg BID PO Last administered on 09/29/19at 09:28; Start 09/29/19 at 09:00 Active Scripts Active Reported No Known Medications Prior To Admisstion (Info) Each 1 Each 1X Allergies Allergies: Coded Allergies: No Known Drug Allergies (Unverified , 09/24/19) Vitals VITALS Vital Signs Date Time Temp Pulse Resp B/P (MAP) Pulse Ox O2 Delivery O2 Flow Rate FiO2 09/29/19 07:49 93 Room Air 09/29/19 06:32 98.8 89 17 136/64 (88) 98.8 09/28/19 11:27 2.0 Labs Labs Laboratory Tests Test 09/27/19 10:28 09/28/19 02:50 09/29/19 03:05 09/29/19 04:30 White Blood Count 15.3 x10^3/uL (4.0-11.0) 16.0 x10^3/uL (4.0-11.0) Red Blood Count 3.22 x10^6/uL (4.30-5.70) 2.87 x10^6/uL (4.30-5.70) Hemoglobin 10.6 g/dL (13.0-17.5) 9.6 g/dL (13.0-17.5) Hematocrit 31.7 % (39.0-53.0) 28.4 % (39.0-53.0) Mean Corpuscular Volume 99 fL (79-100) 99 fL (79-100) Mean Corpuscular Hemoglobin 33 pg (25-35) 34 pg (25-35) Mean Corpuscular Hemoglobin Concent 33 g/dL (31-37) 34 g/dL (31-37) Red Cell Distribution Width 13.6 % (11.5-14.5) 13.7 % (11.5-14.5) Platelet Count 411 x10^3/uL (140-400) 459 x10^3/uL (140-400) Neutrophils (%) (Auto) 85 % (31-73) 80 % (31-73) Lymphocytes (%) (Auto) 7 % (24-48) 9 % (24-48) Monocytes (%) (Auto) 6 % (0-9) 7 % (0-9) Eosinophils (%) (Auto) 1 % (0-3) 3 % (0-3) Basophils (%) (Auto) 1 % (0-3) 1 % (0-3) Neutrophils # (Auto) 13.1 x10^3/uL (1.8-7.7) 12.8 x10^3/uL (1.8-7.7) Lymphocytes # (Auto) 1.1 x10^3/uL (1.0-4.8) 1.5 x10^3/uL (1.0-4.8) Monocytes # (Auto) 1.0 x10^3/uL (0.0-1.1) 1.2 x10^3/uL (0.0-1.1) Eosinophils # (Auto) 0.1 x10^3/uL (0.0-0.7) 0.5 x10^3/uL (0.0-0.7) Basophils # (Auto) 0.1 x10^3/uL (0.0-0.2) 0.1 x10^3/uL (0.0-0.2) Procalcitonin 0.24 ng/mL (0.00-0.10) Sodium Level 140 mmol/L (136-145) Potassium Level 4.8 mmol/L (3.5-5.1) Chloride Level 103 mmol/L (98-107) Carbon Dioxide Level 31 mmol/L (21-32) Anion Gap 6 (6-14) Blood Urea Nitrogen 35 mg/dL (8-26) Creatinine 1.4 mg/dL (0.7-1.3) Estimated GFR (Cockcroft-Gault) 50.9 Glucose Level 109 mg/dL (70-99) Calcium Level 8.7 mg/dL (8.5-10.1) Iron Level 19 ug/dL (65-175) Total Iron Binding Capacity 180 ug/dL (250-450) Iron Saturation 11 % (15-34) Laboratory Tests Test 09/29/19 03:05 09/29/19 04:30 White Blood Count 16.0 x10^3/uL (4.0-11.0) Red Blood Count 2.87 x10^6/uL (4.30-5.70) Hemoglobin 9.6 g/dL (13.0-17.5) Hematocrit 28.4 % (39.0-53.0) Mean Corpuscular Volume 99 fL (79-100) Mean Corpuscular Hemoglobin 34 pg (25-35) Mean Corpuscular Hemoglobin Concent 34 g/dL (31-37) Red Cell Distribution Width 13.7 % (11.5-14.5) Platelet Count 459 x10^3/uL (140-400) Neutrophils (%) (Auto) 80 % (31-73) Lymphocytes (%) (Auto) 9 % (24-48) Monocytes (%) (Auto) 7 % (0-9) Eosinophils (%) (Auto) 3 % (0-3) Basophils (%) (Auto) 1 % (0-3) Neutrophils # (Auto) 12.8 x10^3/uL (1.8-7.7) Lymphocytes # (Auto) 1.5 x10^3/uL (1.0-4.8) Monocytes # (Auto) 1.2 x10^3/uL (0.0-1.1) Eosinophils # (Auto) 0.5 x10^3/uL (0.0-0.7) Basophils # (Auto) 0.1 x10^3/uL (0.0-0.2) Sodium Level 140 mmol/L (136-145) Potassium Level 4.8 mmol/L (3.5-5.1) Chloride Level 103 mmol/L (98-107) Carbon Dioxide Level 31 mmol/L (21-32) Anion Gap 6 (6-14) Blood Urea Nitrogen 35 mg/dL (8-26) Creatinine 1.4 mg/dL (0.7-1.3) Estimated GFR (Cockcroft-Gault) 50.9 Glucose Level 109 mg/dL (70-99) Calcium Level 8.7 mg/dL (8.5-10.1) Iron Level 19 ug/dL (65-175) Total Iron Binding Capacity 180 ug/dL (250-450) Iron Saturation 11 % (15-34) IRENE HUGHES MD Sep 29, 2019 09:56
[2019-09-29 11:00] VITALS: BP 99/32
--- NOTE | 2019-09-29 11:53 | PDOC ---
PROGRESS NOTES Assessment Acute on chronic L4 compression fracture, multilevel chronic thoracolumbar compression fractures, multilevel lumbar spondylosis most prominent L3-L4 and L5-S1, multilevel neural foraminal narrowing most prominent right L3-L4, right L4-L5 and bilateral L5-S1. Medical issues of chronic obstructive pulmonary disease, urinary tract infection/pyelonephritis, tobacco abuse. Plan Rehabilitation modalities Treat medical diseases. Metastatic workup in progress Subjective He is satisfied with pain control Objective Vital Signs Date Time Temp Pulse Resp B/P (MAP) Pulse Ox O2 Delivery O2 Flow Rate FiO2 09/29/19 08:00 Room Air 09/29/19 07:49 93 09/29/19 06:32 98.8 89 17 136/64 (88) 98.8 09/28/19 11:27 2.0 Intake and Output 09/29/19 06:59 Intake Total 1250 ml Output Total 2350 ml Balance -1100 ml Intake Oral 1250 ml Output Urine Total 2350 ml # Voids 1 PHYSICAL EXAM Alert. Oriented to time, place and person. PERRL. EOMI. CN: no focal findings. Muscle tone: normal. Muscle strength: 5/5 DTR: 1+ Plantar reflex: flexor Gait: A little unsteady. Sensory exam: no abnormal findings. No cerebellar signs elicited. Review of Relevant I have reviewed the following items farzad (where applicable) has been applied. Labs Laboratory Tests Test 09/28/19 02:50 09/29/19 03:05 09/29/19 04:30 09/29/19 09:10 Procalcitonin 0.24 ng/mL (0.00-0.10) White Blood Count 16.0 x10^3/uL (4.0-11.0) Red Blood Count 2.87 x10^6/uL (4.30-5.70) Hemoglobin 9.6 g/dL (13.0-17.5) Hematocrit 28.4 % (39.0-53.0) Mean Corpuscular Volume 99 fL (79-100) Mean Corpuscular Hemoglobin 34 pg (25-35) Mean Corpuscular Hemoglobin Concent 34 g/dL (31-37) Red Cell Distribution Width 13.7 % (11.5-14.5) Platelet Count 459 x10^3/uL (140-400) Neutrophils (%) (Auto) 80 % (31-73) Lymphocytes (%) (Auto) 9 % (24-48) Monocytes (%) (Auto) 7 % (0-9) Eosinophils (%) (Auto) 3 % (0-3) Basophils (%) (Auto) 1 % (0-3) Neutrophils # (Auto) 12.8 x10^3/uL (1.8-7.7) Lymphocytes # (Auto) 1.5 x10^3/uL (1.0-4.8) Monocytes # (Auto) 1.2 x10^3/uL (0.0-1.1) Eosinophils # (Auto) 0.5 x10^3/uL (0.0-0.7) Basophils # (Auto) 0.1 x10^3/uL (0.0-0.2) Sodium Level 140 mmol/L (136-145) Potassium Level 4.8 mmol/L (3.5-5.1) Chloride Level 103 mmol/L (98-107) Carbon Dioxide Level 31 mmol/L (21-32) Anion Gap 6 (6-14) Blood Urea Nitrogen 35 mg/dL (8-26) Creatinine 1.4 mg/dL (0.7-1.3) Estimated GFR (Cockcroft-Gault) 50.9 Glucose Level 109 mg/dL (70-99) Calcium Level 8.7 mg/dL (8.5-10.1) Iron Level 19 ug/dL (65-175) Total Iron Binding Capacity 180 ug/dL (250-450) Iron Saturation 11 % (15-34) Vitamin B12 Level 1258 pg/mL (247-911) Erythrocyte Sedimentation Rate 100 (0-15) Laboratory Tests Test 09/29/19 03:05 09/29/19 04:30 09/29/19 09:10 White Blood Count 16.0 x10^3/uL (4.0-11.0) Red Blood Count 2.87 x10^6/uL (4.30-5.70) Hemoglobin 9.6 g/dL (13.0-17.5) Hematocrit 28.4 % (39.0-53.0) Mean Corpuscular Volume 99 fL (79-100) Mean Corpuscular Hemoglobin 34 pg (25-35) Mean Corpuscular Hemoglobin Concent 34 g/dL (31-37) Red Cell Distribution Width 13.7 % (11.5-14.5) Platelet Count 459 x10^3/uL (140-400) Neutrophils (%) (Auto) 80 % (31-73) Lymphocytes (%) (Auto) 9 % (24-48) Monocytes (%) (Auto) 7 % (0-9) Eosinophils (%) (Auto) 3 % (0-3) Basophils (%) (Auto) 1 % (0-3) Neutrophils # (Auto) 12.8 x10^3/uL (1.8-7.7) Lymphocytes # (Auto) 1.5 x10^3/uL (1.0-4.8) Monocytes # (Auto) 1.2 x10^3/uL (0.0-1.1) Eosinophils # (Auto) 0.5 x10^3/uL (0.0-0.7) Basophils # (Auto) 0.1 x10^3/uL (0.0-0.2) Sodium Level 140 mmol/L (136-145) Potassium Level 4.8 mmol/L (3.5-5.1) Chloride Level 103 mmol/L (98-107) Carbon Dioxide Level 31 mmol/L (21-32) Anion Gap 6 (6-14) Blood Urea Nitrogen 35 mg/dL (8-26) Creatinine 1.4 mg/dL (0.7-1.3) Estimated GFR (Cockcroft-Gault) 50.9 Glucose Level 109 mg/dL (70-99) Calcium Level 8.7 mg/dL (8.5-10.1) Iron Level 19 ug/dL (65-175) Total Iron Binding Capacity 180 ug/dL (250-450) Iron Saturation 11 % (15-34) Vitamin B12 Level 1258 pg/mL (247-911) Erythrocyte Sedimentation Rate 100 (0-15) Microbiology 09/27/19 Blood Culture - Preliminary, Resulted NO GROWTH AFTER 2 DAYS 09/24/19 Urine Culture - Final, Complete 09/24/19 Urine Culture Result 1 (KUNAL) - Final, Complete Medications Current Medications Potassium Chloride/Dextrose/ Sod Cl 1,000 ml @ 50 mls/hr Q20H IV Last administered on 09/26/19at 08:25; Start 09/24/19 at 17:00; Stop 09/26/19 at 19:45; Status DC Ciprofloxacin/ Dextrose 200 ml @ 200 mls/hr Q12HR IV Last administered on 09/26/19at 08:26; Start 09/24/19 at 21:00; Stop 09/26/19 at 11:01; Status DC Ondansetron HCl (Zofran) 4 mg PRN Q6HRS PRN IVP NAUSEA/VOMITING Last administered on 09/26/19at 20:08; Start 09/24/19 at 16:15 Ketorolac Tromethamine (Toradol 15mg Vial) 15 mg PRN Q6HRS PRN IVP MODERATE PAIN Last administered on 09/24/19at 16:43; Start 09/24/19 at 16:15; Stop 09/29/19 at 16:14 Lactobacillus Rhamnosus (Culturelle) 1 cap BID PO Last administered on 09/29/19at 09:28; Start 09/24/19 at 21:00 Fentanyl Citrate (Fentanyl 2ml Vial) 50 mcg PRN Q2HR PRN IVP SEVERE PAIN; Start 09/24/19 at 18:30; Stop 09/29/19 at 07:54; Status DC Acetaminophen/ Hydrocodone Bitart (Lortab 5/325) 1 tab PRN Q4HRS PRN PO PAIN Last administered on 09/28/19at 08:18; Start 09/25/19 at 08:15 Nicotine (Nicoderm Cq 14mg) 1 patch DAILY TD Last administered on 09/29/19at 09:27; Start 09/25/19 at 09:00 Vitamin D (Vitamin D3) 2,000 unit DAILY PO Last administered on 09/29/19at 09:28; Start 09/25/19 at 09:00 Ciprofloxacin (Cipro) 500 mg BID PO Last administered on 09/28/19at 08:19; Start 09/26/19 at 21:00; Stop 09/28/19 at 17:52; Status DC Albuterol/ Ipratropium (Duoneb) 3 ml RTQID NEB Last administered on 09/29/19at 07:47; Start 09/26/19 at 20:00 Vancomycin HCl 250 ml @ 250 mls/hr 1X ONCE IV ; Start 09/27/19 at 09:15; Stop 09/27/19 at 10:14; Status UNV Vancomycin HCl 1 gm/Sodium Chloride 250 ml @ 250 mls/hr 1X ONCE IV Last administered on 09/27/19at 10:40; Start 09/27/19 at 10:00; Stop 09/27/19 at 10:59; Status DC Vancomycin HCl 1 gm/Sodium Chloride 250 ml @ 250 mls/hr Q12H IV ; Start 09/27/19 at 20:30; Status UNV Vancomycin HCl (Vanco Per Pharmacy) 1 each PRN DAILY PRN MC SEE COMMENTS Last administered on 09/28/19at 15:07; Start 09/27/19 at 13:45; Stop 09/29/19 at 07:56; Status DC Vancomycin HCl 1 gm/Sodium Chloride 250 ml @ 250 mls/hr Q24H IV Last administered on 09/28/19at 12:32; Start 09/28/19 at 11:00; Stop 09/29/19 at 07:54; Status DC Vancomycin HCl (Vancomycin Trough Level) 1 each 1X ONCE MC ; Start 09/29/19 at 10:30; Stop 09/29/19 at 07:56; Status DC Gadoterate Meglumine (Dotarem) 10.8 ml 1X ONCE IVP Last administered on 09/28/19at 10:55; Start 09/28/19 at 10:45; Stop 09/28/19 at 10:46; Status DC Fluconazole (Diflucan) 200 mg 1X ONCE PO Last administered on 09/28/19at 20:37; Start 09/28/19 at 21:00; Stop 09/28/19 at 21:01; Status DC Fluconazole (Diflucan) 100 mg DAILY PO Last administered on 09/29/19at 09:28; Start 09/29/19 at 09:00 Ciprofloxacin (Cipro) 500 mg BID PO Last administered on 09/29/19at 09:28; Start 09/29/19 at 09:00 Active Scripts Active Reported No Known Medications Prior To Admisstion (Info) Each 1 Each MC 1X Vitals/I & O Vital Sign - Last 24 Hours 09/28/19 09/28/19 09/28/19 09/28/19 15:05 15:20 19:00 20:00 Temp 98.3 98.8 98.3 98.8 Pulse 92 103 Resp 17 17 B/P (MAP) 110/57 (74) 120/58 (78) Pulse Ox 94 95 92 O2 Delivery Room Air Room Air Room Air Room Air 09/28/19 09/29/19 09/29/19 09/29/19 23:00 02:32 06:32 07:49 Temp 98.4 99.8 98.8 98.4 99.8 98.8 Pulse 115 109 89 Resp 17 15 17 B/P (MAP) 116/54 (74) 128/57 (80) 136/64 (88) Pulse Ox 92 93 94 93 O2 Delivery Room Air Room Air Room Air Room Air 09/29/19 08:00 O2 Delivery Room Air Intake and Output 09/28/19 09/28/19 09/29/19 14:59 22:59 06:59 Intake Total 600 ml 650 ml Output Total 300 ml 650 ml 1400 ml Balance 300 ml 0 ml -1400 ml Images THORACIC SPINE WO CONTRAST, LUMBAR SPINE WO/W CONTRAST History: Compression fractures. Pain. Fever. Sepsis. Technique: Multiplanar, multi sequential MR imaging was performed of the thoracic spine without contrast. Multiplanar multisequence MRI was performed of the lumbar spine with and without contrast. Comparison: MRI March 10, 2019. Findings: Thoracic spine MRI: Motion degraded examination. Chronic mild T6, T8, T10 and T11 compression fractures. Chronic moderate T7 and T9 compression fractures. T12 superior endplate Schmorl's node. Normal alignment. No retropulsion. Evaluation of the thoracic spinal cord is degraded due to patient motion. No definite signal abnormality. Mild multilevel degenerative disc disease with disc space narrowing. T11-T12 small posterior disc protrusion. No significant canal narrowing. No neuroforaminal narrowing. Tiny bilateral pleural effusions. MRI lumbar spine: Motion degraded examination. Acute on chronic L4 compression fracture with increased bone marrow edema and increased height loss compared to prior. No retropulsion. Chronic L3 and L5 compression fractures. Inferior endplate L1 Schmorl's node. Normal alignment. No retropulsion. Conus terminates at the normal location. No evidence of nerve root clumping. No enhancement. Right renal cysts. L1-L2: Small posterior disc bulge. No canal or neuroforaminal narrowing. Mild facet arthropathy. L2-L3: Small posterior disc bulge. Mild facet arthropathy. No canal or neuroforaminal narrowing. L3-L4: Broad-based posterior disc bulge. Moderate facet arthropathy. Mild canal narrowing. Superimposed right foraminal disc protrusion. Moderate right neuroforaminal narrowing. Mild left neuroforaminal narrowing. L4-L5: Small posterior disc bulge. Moderate facet arthropathy. Bilateral facet joint effusion. Mild bilateral subarticular recess narrowing. No canal narrowing. Moderate right and mild to moderate left neuroforaminal narrowing. L5-S1: Broad-based posterior disc bulge with central annular fissure. Moderate facet arthropathy. No canal narrowing. Moderate bilateral neural foraminal narrowing. Impression: 1. Motion degraded evaluation. 2. Acute on chronic L4 compression fracture, increased height loss compared to prior. 3. Additional multilevel chronic thoracolumbar compression fractures. 4. Multilevel lumbar spondylosis most prominent L3-L4 and L5-S1. 5. Multilevel neural foraminal narrowing most prominent right L3-L4, right L4-L5 and bilateral L5-S1. 6. Tiny bilateral pleural effusions. MUNA MCBRIDE MD Sep 29, 2019 11:53
--- NOTE | 2019-09-29 12:36 | NUR ---
SW following for discharge planning. Chart reviewed, discussed with RN. PT/OT pending, labs pending. SW will continue to follow for any discharge planning needs.
--- NOTE | 2019-09-29 13:15 | RAD ---
CT CHEST WO CONTRAST History: Cough. Fever. Smoker Technique: Noncontrast CT of the chest was performed. Coronal and sagittal reconstructions were performed. Exposure: One or more of the following individualized dose reduction techniques were utilized for this examination: 1. Automated exposure control 2. Adjustment of the mA and/or kV according to patient size 3. Use of iterative reconstruction technique. Comparison: MRI thoracic spine September 28, 2019. Findings: Chest: No axillary, mediastinal or hilar adenopathy. Coronary artery calcification. Normal heart size. Moderate centrilobular emphysema. No consolidation or pleural effusion. Secretions within the distal left trachea and mainstem bronchus. Upper abdomen: Punctate nonobstructing left renal calculus. Bones: Multilevel thoracolumbar chronic compression fractures, unchanged height loss. Impression: 1. No acute intrathoracic pathology. 2. Moderate pulmonary emphysema. 3. Nonobstructing left renal calculus. 4. Multiple chronic thoracolumbar compression fractures. Electronically signed by: Jag Brumfield DO (09/29/2019 1:12 PM) [facility]
--- NOTE | 2019-09-29 14:45 | RAD ---
BONE SURVEY METASTATIC COMPL History: Multiple fractures Technique: Metastatic bone survey was performed 22 radiographs were obtained. Comparison: Thoracic spine radiograph September 27, 2019. Findings: No radiographic evidence of acute calvarial fracture. Mild retrolisthesis C5 on C6. Moderate degenerative changes C5-C6. Vascular calcifications. Biapical pleural and parenchymal scarring. No consolidation or pleural effusion. Normal heart size. Normal alignment of the hips. No fracture. Normal alignment of the bilateral lower extremities. Normal alignment of the upper extremities. Multilevel compression fractures of the thoracolumbar spine. See dedicated thoracic and lumbar spine MRI for further details. Multilevel thoracolumbar spondylosis. No evidence of lytic or sclerotic lesions. Impression: 1. Multilevel thoracolumbar compression fractures. See dedicated thoracic and lumbar spine MRI. 2. No lytic or sclerotic lesions. Electronically signed by: Jag Brumfield DO (09/29/2019 2:42 PM) [facility]
[2019-09-29 15:00] VITALS: BP 110/47
[2019-09-29 16:12] LABS: KAPPA FREE 58.6 mg/L (3.3-19.4); KAPPA LAMBDA RATIO 1.08 (0.26-1.65); LAMBDA FREE 54.5 mg/L (5.7-26.3)
[2019-09-29 19:00] VITALS: BP 143/99
[2019-09-29 20:10] LABS: IMMUNOGLOBULIN A 468 mg/dL (61-437); IMMUNOGLOBULIN G 1221 mg/dL (700-1600); IMMUNOGLOBULIN M 283 mg/dL (20-172)
[2019-09-29 23:00] VITALS: BP 114/57
[2019-09-30 03:00] VITALS: BP 120/49
[2019-09-30 04:25] LABS: CREATININE 1.4 mg/dL (0.7-1.3); GFR 50.9
[2019-09-30 07:00] VITALS: BP 95/57
[2019-09-30] MEDS: IPRATRPIUM/ALBUTEROL 0.5/2.5MG 3 ML NEBU. NEB SCH ×3 (07:27→15:13)
--- NOTE | 2019-09-30 08:40 | PDOC ---
Provider Note Provider Note skeletal survey and ct chest clear, 24 urine finishing today, spep pending, light chains up- can dc after urine done for op followup but dx of MM still in question- he willsee dr harrison 1 week re tests to see if marrow exam needed LALY SANCHEZ MD Sep 30, 2019 08:40
--- NOTE | 2019-09-30 08:46 | PDOC ---
Provider Note Provider Note [id number] LALY SANCHEZ MD Sep 30, 2019 08:46
[2019-09-30] MEDS: NICOTINE 14MG PATCH. TD SCH (09:23)
[2019-09-30] MEDS: CIPROFLOXACIN HCL 250 MG TABLET. PO SCH (09:23)
[2019-09-30] MEDS: LACTOBACILLUS RHAMNOSUS GG 1 CAPSULE. PO SCH (09:23)
[2019-09-30] MEDS: CHOLECALCIFEROL (VITAMIN D3) 1,000 UNIT TABLET PO SCH (09:23)
[2019-09-30] MEDS: FLUCONAZOLE 100 MG TABLET. PO SCH (09:23)
--- NOTE | 2019-09-30 09:44 | PDOC ---
SUBJECTIVE Subjective S: Pain better today O: Physical exam: Gen.: Well-nourished and well-developed, resting in bed Lungs: Breathing comfortably with no evidence of respiratory distress Psychiatric: Pleasant mood and affect Labs: K/L ratio normal though kappa 58 and lambda 54, SPEP pending, UPEP ordered, IgG normal, IgA slightly elevated at 468, IgM slightly elevated at 283 Rads: Skeletal survey with no lytic lesion CT chest with vertebral compression fractures, emphysema, left renal calc Assessment and Plan: He is a 64-year-old man who is admitted with back pain and associated weakness and numbness and tingling, being treated for UTI, there was a concern for myeloma. UTI: On antibiotics Vertebral compression fractures with back pain: Per primary Concern for myeloma: Skeletal survey neg, and SPEP pending, and kappa lambda ratio normal, UPEP ordered, with quantitative immunoglobulins only sl elev IgA and IgM, will follow-up as soon as rest of labs are available Acute kidney injury: Per primary Thank you kindly and please do not hesitate to call with questions. OBJECTIVE Vital Signs Vital Signs Date Time Temp Pulse Resp B/P (MAP) Pulse Ox O2 Delivery O2 Flow Rate FiO2 09/30/19 07:29 96 Room Air 09/30/19 07:00 97.8 113 16 95/57 (70) 93 Room Air 97.8 09/30/19 03:00 98.3 114 18 120/49 (72) 93 Room Air 98.3 09/29/19 23:00 99.0 113 18 114/57 (76) 96 Room Air 99.0 09/29/19 19:47 94 Room Air 09/29/19 19:43 Room Air 09/29/19 19:00 99.5 121 20 143/99 (114) 92 99.5 09/29/19 16:06 93 Room Air 09/29/19 15:00 99.2 120 18 110/47 (68) 93 Room Air 99.2 09/29/19 12:06 93 Room Air 09/29/19 11:00 98.6 114 18 99/32 (54) 93 98.6 I & O Intake and Output 09/30/19 07:00 Intake Total 690 ml Output Total 1800 ml Balance -1110 ml Intake Oral 690 ml Output Urine Total 1800 ml COMMENT Lab Laboratory Tests Test 09/30/19 03:20 Creatinine 1.4 mg/dL (0.7-1.3) Estimated GFR (Cockcroft-Gault) 50.9 Nutrition Consultation Dietary Evaluation: Recommendations by RD: Increase Calorie Intake, Protein supplementation Comments: encourage snacks/supplements from unit prn Expected Outcomes/Goals: to meet > 75% est nutr needs- goal ongoing Malnutrition Findings: Weight Status: Underweight IRENE COWAN MD Sep 30, 2019 09:44
[2019-09-30 10:48] VITALS: BP 110/54
--- NOTE | 2019-09-30 11:01 | PDOC ---
PROGRESS NOTES Assessment Acute on chronic L4 compression fracture, multilevel chronic thoracolumbar compression fractures, multilevel lumbar spondylosis most prominent L3-L4 and L5-S1, multilevel neural foraminal narrowing most prominent right L3-L4, right L4-L5 and bilateral L5-S1. Medical issues of chronic obstructive pulmonary disease, urinary tract infection/pyelonephritis, tobacco abuse. Oncology workup negative so far Plan Agree with discharge Follow-up with neurology as needed Subjective Feels better, wants to go home Objective Vital Signs Date Time Temp Pulse Resp B/P (MAP) Pulse Ox O2 Delivery O2 Flow Rate FiO2 09/30/19 10:48 97.8 110 16 110/54 (72) 93 Room Air 97.8 Intake and Output 09/30/19 07:00 Intake Total 690 ml Output Total 1800 ml Balance -1110 ml Intake Oral 690 ml Output Urine Total 1800 ml PHYSICAL EXAM Alert. Oriented to time, place and person. PERRL. EOMI. CN: no focal findings. Muscle tone: normal. Muscle strength: 5/5 DTR: 1+ Plantar reflex: flexor Gait: not tested. Sensory exam: no abnormal findings. No cerebellar signs elicited. Review of Relevant I have reviewed the following items farzad (where applicable) has been applied. Labs Laboratory Tests Test 09/29/19 03:05 09/29/19 04:30 09/29/19 09:10 09/30/19 03:20 White Blood Count 16.0 x10^3/uL (4.0-11.0) Red Blood Count 2.87 x10^6/uL (4.30-5.70) Hemoglobin 9.6 g/dL (13.0-17.5) Hematocrit 28.4 % (39.0-53.0) Mean Corpuscular Volume 99 fL (79-100) Mean Corpuscular Hemoglobin 34 pg (25-35) Mean Corpuscular Hemoglobin Concent 34 g/dL (31-37) Red Cell Distribution Width 13.7 % (11.5-14.5) Platelet Count 459 x10^3/uL (140-400) Neutrophils (%) (Auto) 80 % (31-73) Lymphocytes (%) (Auto) 9 % (24-48) Monocytes (%) (Auto) 7 % (0-9) Eosinophils (%) (Auto) 3 % (0-3) Basophils (%) (Auto) 1 % (0-3) Neutrophils # (Auto) 12.8 x10^3/uL (1.8-7.7) Lymphocytes # (Auto) 1.5 x10^3/uL (1.0-4.8) Monocytes # (Auto) 1.2 x10^3/uL (0.0-1.1) Eosinophils # (Auto) 0.5 x10^3/uL (0.0-0.7) Basophils # (Auto) 0.1 x10^3/uL (0.0-0.2) Sodium Level 140 mmol/L (136-145) Potassium Level 4.8 mmol/L (3.5-5.1) Chloride Level 103 mmol/L (98-107) Carbon Dioxide Level 31 mmol/L (21-32) Anion Gap 6 (6-14) Blood Urea Nitrogen 35 mg/dL (8-26) Creatinine 1.4 mg/dL (0.7-1.3) 1.4 mg/dL (0.7-1.3) Estimated GFR (Cockcroft-Gault) 50.9 50.9 Glucose Level 109 mg/dL (70-99) Calcium Level 8.7 mg/dL (8.5-10.1) Iron Level 19 ug/dL (65-175) Total Iron Binding Capacity 180 ug/dL (250-450) Iron Saturation 11 % (15-34) Vitamin B12 Level 1258 pg/mL (247-911) Erythrocyte Sedimentation Rate 100 (0-15) Immunoglobulin G 1221 mg/dL (700-1600) Immunoglobulin A 468 mg/dL (61-437) Immunoglobulin M 283 mg/dL (20-172) Laboratory Tests Test 09/30/19 03:20 Creatinine 1.4 mg/dL (0.7-1.3) Estimated GFR (Cockcroft-Gault) 50.9 Microbiology 09/27/19 Blood Culture - Preliminary, Resulted NO GROWTH AFTER 3 DAYS 09/24/19 Urine Culture - Final, Complete 09/24/19 Urine Culture Result 1 (KUNAL) - Final, Complete Medications Current Medications Potassium Chloride/Dextrose/ Sod Cl 1,000 ml @ 50 mls/hr Q20H IV Last administered on 09/26/19at 08:25; Start 09/24/19 at 17:00; Stop 09/26/19 at 19:45; Status DC Ciprofloxacin/ Dextrose 200 ml @ 200 mls/hr Q12HR IV Last administered on 09/26/19 08:26; Start 09/24/19 at 21:00; Stop 09/26/19 at 11:01; Status DC Ondansetron HCl (Zofran) 4 mg PRN Q6HRS PRN IVP NAUSEA/VOMITING Last administered on 09/26/19 20:08; Start 09/24/19 at 16:15 Ketorolac Tromethamine (Toradol 15mg Vial) 15 mg PRN Q6HRS PRN IVP MODERATE PAIN Last administered on 09/24/19 16:43; Start 09/24/19 at 16:15; Stop 09/02 08/20 at 16:14; Status DC Lactobacillus Rhamnosus (Culturelle) 1 cap BID PO Last administered on 09/30/19 09:23; Start 09/24/19 at 21:00 Fentanyl Citrate (Fentanyl 2ml Vial) 50 mcg PRN Q2HR PRN IVP SEVERE PAIN; Start 09/24/19 at 18:30; Stop 09/29/19 at 07:54; Status DC Acetaminophen/ Hydrocodone Bitart (Lortab 5/325) 1 tab PRN Q4HRS PRN PO PAIN Last administered on 09/28/19 08:18; Start 09/25/19 at 08:15 Nicotine (Nicoderm Cq 14mg) 1 patch DAILY TD Last administered on 09/30/19 09:23; Start 09/25/19 at 09:00 Vitamin D (Vitamin D3) 2,000 unit DAILY PO Last administered on 09/30/19 09:23; Start 09/25/19 at 09:00 Ciprofloxacin (Cipro) 500 mg BID PO Last administered on 09/28/19 08:19; Start 09/26/19 at 21:00; Stop 09/28/19 at 17:52; Status DC Albuterol/ Ipratropium (Duoneb) 3 ml RTQID NEB Last administered on 09/30/19 07:27; Start 09/26/19 at 20:00 Vancomycin HCl 250 ml @ 250 mls/hr 1X ONCE IV ; Start 09/27/19 at 09:15; Stop 09/27/19 at 10:14; Status UNV Vancomycin HCl 1 gm/Sodium Chloride 250 ml @ 250 mls/hr 1X ONCE IV Last administered on 09/27/19at 10:40; Start 09/27/19 at 10:00; Stop 09/27/19 at 10:59; Status DC Vancomycin HCl 1 gm/Sodium Chloride 250 ml @ 250 mls/hr Q12H IV ; Start 09/27/19 at 20:30; Status UNV Vancomycin HCl (Vanco Per Pharmacy) 1 each PRN DAILY PRN MC SEE COMMENTS Last administered on 09/28/19at 15:07; Start 09/27/19 at 13:45; Stop 09/29/19 at 07:56; Status DC Vancomycin HCl 1 gm/Sodium Chloride 250 ml @ 250 mls/hr Q24H IV Last administered on 09/28/19at 12:32; Start 09/28/19 at 11:00; Stop 09/29/19 at 07:54; Status DC Vancomycin HCl (Vancomycin Trough Level) 1 each 1X ONCE MC ; Start 09/29/19 at 10:30; Stop 09/29/19 at 07:56; Status DC Gadoterate Meglumine (Dotarem) 10.8 ml 1X ONCE IVP Last administered on 09/28/19at 10:55; Start 09/28/19 at 10:45; Stop 09/28/19 at 10:46; Status DC Fluconazole (Diflucan) 200 mg 1X ONCE PO Last administered on 09/28/19at 20:37; Start 09/28/19 at 21:00; Stop 09/28/19 at 21:01; Status DC Fluconazole (Diflucan) 100 mg DAILY PO Last administered on 09/30/19at 09:23; Start 09/29/19 at 09:00 Ciprofloxacin (Cipro) 500 mg BID PO Last administered on 09/30/19at 09:23; Start 09/29/19 at 09:00 Active Scripts Active Reported No Known Medications Prior To Admisstion (Info) Each 1 Each MC 1X Vitals/I & O Vital Sign - Last 24 Hours 09/29/19 09/29/19 09/29/19 09/29/19 11:00 12:06 15:00 16:06 Temp 98.6 99.2 98.6 99.2 Pulse 114 120 Resp 18 18 B/P (MAP) 99/32 (54) 110/47 (68) Pulse Ox 93 93 93 93 O2 Delivery Room Air Room Air Room Air 09/29/19 09/29/19 09/29/19 09/29/19 19:00 19:43 19:47 23:00 Temp 99.5 99.0 99.5 99.0 Pulse 121 113 Resp 20 18 B/P (MAP) 143/99 (114) 114/57 (76) Pulse Ox 92 94 96 O2 Delivery Room Air Room Air Room Air 09/30/19 09/30/19 09/30/19 09/30/19 03:00 07:00 07:29 10:48 Temp 98.3 97.8 97.8 98.3 97.8 97.8 Pulse 114 113 110 Resp 18 16 16 B/P (MAP) 120/49 (72) 95/57 (70) 110/54 (72) Pulse Ox 93 93 96 93 O2 Delivery Room Air Room Air Room Air Room Air Intake and Output 09/29/19 09/29/19 09/30/19 15:00 23:00 07:00 Intake Total 690 ml Output Total 650 ml 650 ml 500 ml Balance -650 ml -650 ml 190 ml MUNA MCBRIDE MD Sep 30, 2019 11:01
--- NOTE | 2019-09-30 11:28 | DS ---
DATE OF DISCHARGE: 09/30/2019 HOSPITAL SUMMARY: This 64-year-old white male came in with ongoing fever, chills, and weakness despite outpatient oral treatment with Cipro for UTI and possible prostatitis. His white count was initially elevated at 17,000 and came down just a little in the hospital. Hemoglobin was 11.9 and at discharge was 99.6. Sed rate remained high at 100. Initial creatinine 1.7, GFR 40 and with IV hydration, improved GFR of 51 and a creatinine of 1.4. B12 level was high. PSA came down to 2.0 in the hospital. Serum protein electrophoresis is pending as is his 24-hour urine for immunoelectrophoresis. [place] lambda ratio was felt to be normal, but light chains of both kappa and lambda were elevated. Urine showed no evidence of infection. Blood and urine cultures all had no growth. CT scan of the chest showed emphysema with no sign of pulmonary lesions. Metastatic skeletal survey was negative. Thoracic and lumbar spine MRI showed numerous compression fractures of T6, T8, T10, T11, and T12 with no active acute changes or no sign of infection, diskitis or abscess. He received IV Cipro and then IV vancomycin while in the hospital and then was switched to oral Cipro once his temperatures improved and his fever lessened. He continued to have low-grade fever, raising the question of underlying hematologic diagnosis such as multiple myeloma. This workup is in progress and once a 24-hour urine is completed today, he will be discharged and followed as an outpatient, as he may need a bone marrow exam should the protein electrophoresis show myeloma, M-spike or electrophoresis of the urine be abnormal. He was seen in consultation by Dr. Gracia and Dr. Violette Hughes while in the hospital as well. FINAL DIAGNOSES: 1. Acute bacterial prostatitis. 2. Anemia, leukocytosis, multiple compression fractures, elevated globulin raising the question of multiple myeloma or premyeloma condition. 3. Chronic obstructive pulmonary disease. 4. Acute renal failure, improved. 5. Chronic kidney disease 3, stable. OPERATIONS/PROCEDURES/COMPLICATIONS: None. CONSULTATIONS: Dr. Gracia and Dr. Violette Hughes. DISPOSITION: He will finish another week of Cipro 500 mg twice a day along with a week of Diflucan for oral thrush that he has. He will follow up with Dr. Hughes in 1 week in regards to the myeloma labs that are pending to see if the bone marrow exam was to be considered. He is aware that the definitive diagnosis has not been made yet and that continued low-grade temperatures could be related to this underlying diagnosis. High protein, high calorie diet. Complete tobacco avoidance was encouraged. LALY SANCHEZ MD DR: SHRADDHA/shakeel JOB#: [id number] / [id number]
--- NOTE | 2019-09-30 12:09 | NUR ---
SW following. Discussed with RN, RN advised no SW needs and anticipates pt will discharge home today. SW will continue to follow should any discharge needs arise.
[2019-09-30 15:00] VITALS: BP 118/55
[2019-09-30] MEDS: HYDROcodone/APAP 5/325MG 1 TAB TABLET PO PRN (16:14)
--- NOTE | 2019-09-30 18:42 | NUR ---
Pt left unit by wheelchair with granddaughter. Pt left via private vehicle. IV removed, no complications. Discharge paperwork discussed and additional questions addressed. Pt stable upon discharge.
[2019-10-02 10:16] LABS: ALBUM 2.3 g/dL (2.9-4.4); ALPHA 1 0.4 g/dL (0.0-0.4); ALPHA 2 0.9 g/dL (0.4-1.0); BETA 0.8 g/dL (0.7-1.3); GAMMA 1.3 g/dL (0.4-1.8); PROTEIN TOTAL 5.8 g/dL (6.0-8.5); SPEP AG RATIO 0.7 (0.7-1.7)
[2019-10-02 18:13] LABS: ALBUMIN UR 10.9 % (.); ALPHA 1 UR 3.3 % (.); ALPHA 2 UR 10.7 % (.); BETA UR 29.9 % (.); GAMMA UR 45.1 % (.); PROTEIN 24 UR 145 mg/24 hr (30-150); PROTEIN UR 4.7 mg/dL (Not Estab.)
== END 2019-09-30 18:44 | disposition home or self-care (01) | DRG 871 ==
LOC: 5 SOUTH 15:25
PROVIDERS: ADMIT Family Medicine; ATTEND Family Medicine
DX: A41.9 Sepsis, unspecified organism (principal); N17.0 Acute kidney failure with tubular necrosis; N41.0 Acute prostatitis; M48.55XA Collapsed vertebra, not elsewhere classified, thoracolumbar region, initial encounter for fracture; N12 Tubulo-interstitial nephritis, not specified as acute or chronic; D64.9 Anemia, unspecified; F15.10 Other stimulant abuse, uncomplicated; F32.9 Major depressive disorder, single episode, unspecified; G62.9 Polyneuropathy, unspecified; G89.29 Other chronic pain; F17.210 Nicotine dependence, cigarettes, uncomplicated; J44.9 Chronic obstructive pulmonary disease, unspecified; M47.816 Spondylosis without myelopathy or radiculopathy, lumbar region; N18.3 Chronic kidney disease, stage 3 (moderate); Z91.81 History of falling
CPT/HCPCS: 36415; 71046; 71250; 72080; 72146; 72158; 76770; 77075; 80048; 80053; 81001; 82306; 82565; 82607; 82784; 83520; 83540; 83550; 84145; 84165; 84166; 85007; 85025; 85651; 87040; 87086; 94640; 94760; 99406; A9575; G0103; J0744; J1885; J2405; J3370; J7050; J7620; 97110; 97116; 97530; G0378; J7030

== ENCOUNTER → 2021-10-17 | Outpatient (CLI) | payer OTHER ==
--- NOTE | 2021-10-17 08:33 | KCIC ---
EXAM: Abdominal aortic sonogram. HISTORY: Aneurysm screening. TECHNIQUE: Sonographic imaging of the abdominal aorta was performed. COMPARISON: 03/10/2019. FINDINGS: The proximal abdominal aorta measures 2.5 cm in caliber. The mid abdominal aorta measures 1 .8 cm in caliber. The distal abdominal aorta measures 1.4 cm in caliber. The common iliac arteries me asure 0.8 cm in caliber. There is an elevated peak systolic velocity within the right common iliac ar [place], measuring 319 cm/s. There is calcified atherosclerotic plaque within the aorta and iliac bifurc ation. IMPRESSION: 1. No abdominal aortic aneurysm. 2. Aortobiiliac atherosclerosis and elevated peak systolic velocity within the right common femoral a rtery likely due to stenosis. Electronically signed by: Sofia Donnelly MD (10/17/2021 8:31 AM) [id number]
--- NOTE | 2021-10-17 08:41 | KCIC ---
EXAM: CT CHEST WITHOUT CONTRAST (LDCT LUNG CANCER SCREENING). HISTORY: Risk factors for pulmonary malignancy. COPD.. Cigarette smoking history. TECHNIQUE: CT of the chest was performed without intravenous contrast using a low-dose lung screening protocol. Findings analysis is based on ACR Lung-RADS v1.1. *One or more of the following individual ized dose reduction techniques were utilized for this examination: 1. Automated exposure control. 2. Adjustment of the mA and/or kV according to patient size. 3. Use of iterative reconstruction technique. COMPARISON: 09/29/2019. FINDINGS: The heart is normal in size. There is calcified atherosclerotic plaque involving the arriola ry arteries. There is calcification of the aortic valve. There is no lymphadenopathy. There is no pne umothorax or pleural effusion. There is no infiltrate. There is severe emphysema. There is bandlike d ensity within the medial left lung base likely due to scarring. There is also biapical pleural parenc hymal scarring and apical predominant subpleural bleb formation. There is no suspicious pulmonary nod ule. There are moderate to severe compression fractures of T5, T6, T7, T8, and T9. There are mild to moder ate endplate depressions with endplate Schmorl's nodes at T11, T12, L1, L2 and L3. The fractures at T 8, T6, T5 and L3 are new compared to the prior exam. There is sclerosis involving the T8, T6 and infe rior L3 vertebral bodies, favoring subacute fractures. There is bone demineralization. There is an in cidental tiny left hepatic cyst and tiny nonobstructing left renal stone. IMPRESSION: 1. No suspicious pulmonary nodule. Lung RADS category 1: Annual low-dose lung cancer screening CT is recommended. 2. Severe emphysema with biapical pleural parenchymal scarring and bandlike scarring within the media l left lung base. 3. Multiple thoracic and lumbar vertebral compression fractures, described in detail above. The fract ures at T8, T6, T5 and L3 are new compared to the prior exam. These may be subacute based on the imag ing appearance. The remainder of the fractures are chronic in appearance. Electronically signed by: Sofia Donnelly MD (10/17/2021 8:39 AM) [id number]
== END ==
LOC: KCIC US 07:58
PROVIDERS: ATTEND Family Medicine
DX: Z12.2 Encounter for screening for malignant neoplasm of respiratory organs (principal); Z13.6 Encounter for screening for cardiovascular disorders; I70.0 Atherosclerosis of aorta; I25.10 Atherosclerotic heart disease of native coronary artery without angina pectoris; I35.8 Other nonrheumatic aortic valve disorders; M48.54XA Collapsed vertebra, not elsewhere classified, thoracic region, initial encounter for fracture; M51.45 Schmorl's nodes, thoracolumbar region; N20.0 Calculus of kidney; K76.89 Other specified diseases of liver; J43.9 Emphysema, unspecified; J98.4 Other disorders of lung; F17.210 Nicotine dependence, cigarettes, uncomplicated
CPT/HCPCS: 71271; 76770